=== PATIENT | female | born 1985 | race Caucasian/White ===

== ENCOUNTER 2017-07-17 08:29 | Inpatient (IN) | payer OTHER ==
[2017-07-17] VITALS (101 sets, daily range): BP systolic 101–140; BP diastolic 63–95; PULSE 86–156; RESP 16–18; TEMP 97.7–98.8; O2SAT 98
[~2017-07-17] VITALS: Ht 154.9 cm; Wt 89.0 kg
[~2017-07-17 08:29] MED LIST: SYNT175T PO
[2017-07-17] MEDS ORDERED: LACTATED RINGER'S 1000 ML INJ 1,000 ML IV PRN (10:10)
[2017-07-17] MEDS ORDERED: CITRIC ACID-SODIUM CITRATE LIQ 30 ML UDC PO SCH (10:15)
[2017-07-17] MEDS ORDERED: LIDOCAINE HCL 1% 50 ML VIAL INFIL PRN (10:15)
[2017-07-17] MEDS ORDERED: SODIUM CHLORID 0.9% 500 ML INJ 500 ML IV PRN (10:15)
[2017-07-17] MEDS ORDERED: OXYTOCIN 30 UNITS-500ML PREMIX 500 ML IV ONE (10:15)
[2017-07-17] MEDS ORDERED: OXYTOCIN 30 UNITS-500ML PREMIX 500 ML IV PRN (10:15)
[2017-07-17] MEDS ORDERED: MINERAL OIL 10 ML VIAL TOPICAL PRN (10:15)
[2017-07-17] MEDS ORDERED: LIDOCAINE HCL 1% 50 ML VIAL I-DERMAL PRN (10:15)
[2017-07-17 10:29] LABS: AUTOMATED NEUTROPHIL # 6.6 TH/MM3 (1.8-7.7); BASOPHIL % 0.4 % (0.0-2.0); EOSINOPHIL # 0.1 TH/MM3 (0-0.4); EOSINOPHIL % 1.5 % (0.0-4.0); HEMATOCRIT 30.1 % (35.0-46.0); HEMOGLOBIN 10.1 GM/DL (11.6-15.3); LYMPH % 17.3 % (9.0-44.0); LYMPHOCYTE # 1.6 TH/MM3 (1.0-4.8); MEAN CELL VOLUME 82.3 FL (80.0-100.0); MEAN CORPUSCULAR HEMOGLOBIN 27.8 PG (27.0-34.0); MEAN CORPUSCULAR HGB CONC 33.7 % (32.0-36.0); MEAN PLATELET VOLUME 8.2 FL (7.0-11.0); MONO % 9.2 % (0.0-8.0); MONOCYTE # 0.9 TH/MM3 (0-0.9); NEUT % 71.6 % (16.0-70.0); PLATELET COUNT 323 TH/MM3 (150-450); RED BLOOD COUNT 3.65 MIL/MM3 (4.00-5.30); RED CELL DISTRIBUTION WIDTH 15.1 % (11.6-17.2); WHITE BLOOD COUNT 9.2 TH/MM3 (4.0-11.0)
[2017-07-17] MEDS ORDERED: SODIUM CHLOR 0.9% 1000 ML INJ 1,000 ML IV PRN (10:30)
[2017-07-17 10:40] LABS: BACTERIA, URINE MANY /hpf; BILIRUBIN, URINE NEG (NEG); BLOOD, URINE NEG (NEG); GLUCOSE,URINE NEG (NEG); KETONE, URINE NEG (NEG); MUCUS URINE FEW /lpf (OCC); NITRITE,URINE NEG (NEG); SQUAMOUS EPITHELIAL CELL URINE 6 /hpf (0-5); URINE COLOR YELLOW (YELLW/STRAW); URINE LEUKOCYTE ESTERASE SMALL (NEG)
[2017-07-17] MEDS: LACTATED RINGER'S 1000 ML INJ 1,000 ML IV SCH ×3 (11:02→13:40)
[2017-07-17] MEDS ORDERED: fentaNYL 2MCG-BUPIV 0.125% INJ 100 ML ONE (12:51)
[2017-07-17] MEDS ORDERED: ePHEDrine/NS 25 MG/5 ML SYRINGE ONE (12:52)
[2017-07-17] MEDS ORDERED: ePHEDrine/NS 25 MG/5 ML SYRINGE IV PUSH PRN (14:15)
[2017-07-17] MEDS ORDERED: DO NOT ADMINISTER ANTICOAGULANTS PRN (15:00)
[2017-07-17] MEDS ORDERED: NO SYSTEM NARCOTICS PRN (15:00)
[2017-07-17] MEDS ORDERED: fentaNYL 2MCG-BUPIV 0.125% 100 ML EPIDURAL SCH (15:00)
[2017-07-17] MEDS ORDERED: DIPHTH/TETANUS/ACEL PERTUSSIS (BOOSTER) 0.5 ML VIAL/PFS IM ONE (16:00)
[2017-07-17] MEDS ORDERED: MEASLES, MUMPS, RUBELLA VACCINE 0.5 ML VIAL SQ ONE (16:00)
--- NOTE | 2017-07-17 17:26 | PD.OB.DELI ---
Weeks gestation: 40 Gest age assessed date: Jul 17, 2017 Gest age assessed time: 09:00 Pt started active labor?: Yes Active labor start date: Jul 17, 2017 Active labor start time: 09:00 Medical induction of labor?: No Anesthesia: Epidural Episiotomy: None Vaginal Delivery: Normal Presentation: Occiput anterior Nuchal Cord: x1 Delayed cord clamping (45 sec): No : Male, Single Delivery date: Jul 17, 2017 Delivery time: 17:00 One Minute : 7 Five Minute : 9 Placenta: Spontaneous delivery, Intact, 3 vessel cord Laceration: Perineal laceration, 2 deg Repair: Chromic running Estimated blood loss: 300 Wilfred Mario MD Jul 17, 2017 17:26
[2017-07-17] MEDS ORDERED: DOCUSATE SODIUM 50 MG/SENNA 8.6 MG TAB PO PRN (17:30)
[2017-07-17] MEDS ORDERED: BENZOCAINE 20% TOPICAL SPRAY 60 ML CAN TOPICAL PRN (17:30)
[2017-07-17] MEDS ORDERED: ONDANSETRON ODT 4 MG TAB PO PRN (17:30)
[2017-07-17] MEDS ORDERED: SODIUM CHLORIDE 0.9% FLUSH 10 ML FLUSH IV FLUSH PRN (17:30)
[2017-07-17] MEDS ORDERED: ALUMINUM/MAGNESIUM/SIMETH 30 ML CUP PO PRN (17:30)
[2017-07-17] MEDS ORDERED: WITCH HAZEL 50%/GLYCERIN 12.5% 40 PAD JAR TOPICAL PRN (17:30)
[2017-07-17] MEDS ORDERED: ZOLPIDEM TARTRATE 5 MG TAB PO PRN (17:30)
[2017-07-17] MEDS ORDERED: OXYTOCIN 30 UNITS-500ML PREMIX 500 ML IV SCH (17:30)
[2017-07-17] MEDS: IBUPROFEN 800 MG TAB PO PRN (18:39)
[2017-07-17] MEDS ORDERED: SODIUM CHLORIDE 0.9% FLUSH 10 ML FLUSH IV FLUSH SCH (21:00)
[2017-07-18] MEDS: IBUPROFEN 800 MG TAB PO PRN ×2 (02:35→11:47)
[2017-07-18] MEDS: ACETAMINOPHEN 325 MG TAB PO PRN ×3 (02:35→18:28)
[2017-07-18 08:00] VITALS: BP 110/79; PULSE 89; RESP 20; TEMP 97.9; O2SAT 98
--- NOTE | 2017-07-18 08:04 | HHI.OB ---
Subjective Post Day: 1 Remarks doing well breast feeding and bleeding normal Objective Vitals/I&O Vital Signs Date Time Temp Pulse Resp B/P (MAP) Pulse Ox O2 Delivery O2 Flow Rate FiO2 07/17/17 21:00 98.0 109 18 128/84 (99) 98 07/17/17 18:35 18 07/17/17 18:23 95 122/79 (93) 07/17/17 18:00 99 102/74 (83) 07/17/17 17:45 106 121/85 (97) 07/17/17 17:30 115 118/80 (93) 07/17/17 17:20 98.8 07/17/17 17:15 111 126/76 (93) 07/17/17 17:05 125 121/77 (92) 07/17/17 17:01 156 136/79 (98) 07/17/17 17:00 154 07/17/17 16:35 106 07/17/17 16:30 101 125/88 (100) 07/17/17 16:30 103 07/17/17 16:10 92 07/17/17 16:05 98 07/17/17 16:00 94 117/82 (94) 07/17/17 16:00 92 07/17/17 15:48 98.1 07/17/17 15:40 102 07/17/17 15:35 96 07/17/17 15:30 86 07/17/17 15:30 94 116/78 (91) 07/17/17 15:25 99 07/17/17 15:20 101 07/17/17 15:15 103 103/68 (80) 07/17/17 15:15 18 07/17/17 15:15 99 07/17/17 15:10 101 07/17/17 15:05 112 07/17/17 15:00 97 07/17/17 15:00 101 101/63 (76) 07/17/17 15:00 18 07/17/17 14:55 101 07/17/17 14:50 100 07/17/17 14:45 100 07/17/17 14:45 106 114/77 (89) 07/17/17 14:40 105 07/17/17 14:35 96 07/17/17 14:30 106 110/74 (86) 07/17/17 14:30 107 07/17/17 14:30 97.7 07/17/17 14:30 18 07/17/17 14:25 106 07/17/17 14:20 115 07/17/17 14:15 96 07/17/17 14:15 107 07/17/17 14:15 105 116/68 (84) 07/17/17 14:00 18 07/17/17 13:55 129 07/17/17 13:55 126 07/17/17 13:51 127 117/71 (86) 07/17/17 13:50 130 07/17/17 13:48 112 117/69 (85) 07/17/17 13:45 104 07/17/17 13:45 117 121/73 (89) 07/17/17 13:45 118 07/17/17 13:42 110 118/70 (86) 07/17/17 13:40 106 07/17/17 13:40 106 07/17/17 13:39 113 118/75 (89) 07/17/17 13:36 104 123/73 (90) 07/17/17 13:35 109 07/17/17 13:35 110 07/17/17 13:33 104 119/74 (89) 07/17/17 13:30 97 07/17/17 13:30 113 123/78 (93) 07/17/17 13:30 115 07/17/17 13:30 16 07/17/17 13:27 131/85 (100) 07/17/17 13:27 98 07/17/17 13:25 110 07/17/17 13:25 109 07/17/17 13:24 113 07/17/17 13:24 140/88 (105) 07/17/17 13:21 107 130/88 (102) 07/17/17 13:20 100 07/17/17 13:20 101 07/17/17 13:18 101 135/76 (95) 07/17/17 13:15 121 135/88 (104) 07/17/17 13:15 113 07/17/17 13:15 137 07/17/17 13:14 104 128/83 (98) 07/17/17 13:10 100 07/17/17 13:10 100 07/17/17 13:08 101 129/90 (103) 07/17/17 13:05 104 07/17/17 13:05 103 07/17/17 13:01 95 123/85 (98) 07/17/17 13:00 95 07/17/17 13:00 97 07/17/17 13:00 18 07/17/17 12:55 95 07/17/17 12:50 95 07/17/17 12:45 98 07/17/17 12:40 100 07/17/17 12:35 95 07/17/17 12:30 18 07/17/17 12:30 94 117/80 (92) 07/17/17 12:30 93 07/17/17 12:25 94 07/17/17 12:20 95 07/17/17 12:15 101 07/17/17 12:10 96 07/17/17 12:05 95 07/17/17 12:00 18 07/17/17 12:00 98 121/88 (99) 07/17/17 12:00 102 07/17/17 11:55 98 07/17/17 11:50 97 07/17/17 11:45 98 07/17/17 11:40 95 07/17/17 11:35 100 07/17/17 11:34 98 115/82 (93) 07/17/17 11:30 107 116/91 (99) 07/17/17 11:30 16 07/17/17 11:30 100 07/17/17 11:25 96 07/17/17 11:20 100 07/17/17 11:15 100 07/17/17 11:00 18 07/17/17 10:59 90 130/85 (100) 07/17/17 10:50 96 07/17/17 10:45 102 07/17/17 10:30 16 07/17/17 10:25 100 07/17/17 10:20 104 07/17/17 10:15 104 07/17/17 10:15 16 07/17/17 10:12 106 123/95 (104) 07/17/17 10:10 102 07/17/17 10:00 99 07/17/17 09:55 98 07/17/17 09:50 106 07/17/17 09:45 108 07/17/17 09:30 18 07/17/17 09:25 110 07/17/17 09:20 110 07/17/17 09:15 99 Objective Remarks GENERAL: Well-nourished, well-developed patient. ABDOMEN/GI: Abdomen soft, non-tender. Fundus: Firm, non-tender at umbilicus. GENITOURINARY: Light to moderate bleeding. EXTREMITIES: No cyanosis or edema, non-tender, without signs of DVT. Medications and IVs Current Medications Medications (Trade) Dose Ordered Sig/Eri Route Start Time Stop Time Status Last Admin Miscellaneous Information No systemic narcotics to be given except... UNSCH PRN .XX 07/17/17 15:00 07/18/17 14:59 Miscellaneous Information DO NOT ADMINISTER ANY ANTICOAGUL... UNSCH PRN .XX 07/17/17 15:00 07/18/17 14:59 (NS Flush) 2 ml BID IV FLUSH 07/17/17 21:00 (NS Flush) 2 ml UNSCH PRN IV FLUSH 07/17/17 17:30 (Tylenol) 650 mg Q4H PRN PO 07/17/17 17:30 07/18/17 02:35 (Motrin) 800 mg Q8H PRN PO 07/17/17 17:30 07/18/17 02:35 (Americaine 20% Top Spr) 1 spray Q4H PRN TOPICAL 07/17/17 17:30 (Tucks Pads) 1 applic QID PRN TOPICAL 07/17/17 17:30 (Karen-Colace) 2 tab Q12H PRN PO 07/17/17 17:30 (Ambien) 5 mg HS PRN PO 07/17/17 17:30 (Mag-Al Plus Susp Liq) 15 ml Q8H PRN PO 07/17/17 17:30 (Zofran Odt) 4 mg Q6H PRN PO 07/17/17 17:30 Assessment/Plan Problem List: (1) Spontaneous vaginal delivery ICD Codes: O80 - Encounter for full-term uncomplicated delivery Discharge Planning dc in am Wilfred Mario MD Jul 18, 2017 08:04
[2017-07-18] MEDS ORDERED: PERC5TAB12 PO (08:33)
--- NOTE | 2017-07-18 08:33 | HHI.DCPOC ---
Discharge Care Plan Diagnosis: (1) Spontaneous vaginal delivery Report Symptoms to Your Doctor -Temperature above 100.5 degrees -Redness, of incision or excessive or foul smelling drainage -Unusual pain or calf pain -Increased vaginal bleeding -Painful or difficulty urinating -Feelings of extreme sadness or anxiety after 2 weeks Goals to Promote Your Health * To prevent worsening of your condition and complications * To maintain your health at the optimal level Directions to Meet Your Goals Take your medications as prescribed Follow your dietary instruction Follow activity as directed Ensure plenty of rest for recovery Drink fluids for hydration Keep your appointments as scheduled Take your immunizations and boosters as scheduled If your symptoms worsen call your PCP, if no PCP go to Urgent Care Center or Emergency Room Smoking is Dangerous to Your Health. Avoid second hand smoke Call the 24-hour crisis hotline for domestic abuse at Wilfred Mario MD Jul 18, 2017 08:33
--- NOTE | 2017-07-18 17:42 | HHI.DS ---
Admission Date Jul 17, 2017 at 08:47 Discharge Date: Jul 18, 2017 Admitting Diagnosis Diagnosis: (1) Spontaneous vaginal delivery Diagnosis: Principal ICD Codes: O80 - Encounter for full-term uncomplicated delivery Delivery Date: Jul 17, 2017 Vaginal Delivery: Normal, Spontaneous : Male, Single Brief History patient comes for induction at 40 weeks with favorable cervix Hospital Course on day of admission pitocin augment and non complicated delivery. Dc home PPD #1 Pt Condition on Discharge: Good Discharge Disposition: Discharge Home Discharge Instructions Diet Instructions: As Tolerated, No Restrictions Activities You Can Perform: Pelvic Rest Activities to Avoid: Driving for 24 hrs Follow up Referrals: [facility] M[facility]INE [facility] - 2 Weeks @ [facility] with Wilfred Mario MD New Medications: Oxycodone-Acetaminophen (Percocet) 5-325 mg Tab 1-2 TAB PO Q4H PRN for PAIN for 20 Days, #20 TAB 0 Refills Continued Medications: Synthroid 175 mcg (Synthroid 175 mcg) Levothyroxine Sodium 175 mcg Tab 1 TAB PO DAILY, TAB Wilfred Mario MD Jul 18, 2017 17:42
== END 2017-07-18 18:52 | disposition home or self-care (01) | DRG 775 ==
LOC: H2EA 08:47 → H1EA 19:41
PROVIDERS: ADMIT Obstetrics & Gynecology; ATTEND Obstetrics & Gynecology
PROC: 10E0XZZ Delivery of Products of Conception, External Approach (ICD-10-PCS; principal; 2017-07-17)
PROC: 0KQM0ZZ Repair Perineum Muscle, Open Approach (ICD-10-PCS; 2017-07-17)
DX: O70.1 Second degree perineal laceration during delivery (principal); Z37.0 Single live birth; O69.81X0 Labor and delivery complicated by cord around neck, without compression, not applicable or unspecified; Z3A.40 40 weeks gestation of pregnancy
CPT/HCPCS: 59025; 80307; 81001; 85025; 86703; 86900; 86901; 87086; G0481; J2590; J7120